=== PATIENT | male | born 1995 | race Caucasian/White ===

== ENCOUNTER 2025-05-15 20:20 | Emergency (ER) | payer BC, OTHER ==
[2025-05-15] MEDS ORDERED: Triple Antibiotic Oint 1 GM Packet ONE (20:27)
== END 2025-05-15 20:39 ==
LOC: CSHERS 20:20
DX: S61.210A Laceration without foreign body of right index finger without damage to nail, initial encounter (principal); W45.8XXA Other foreign body or object entering through skin, initial encounter
CPT/HCPCS: 99282